=== PATIENT | female | born 1990 | race Two or more races ===

== ENCOUNTER 2020-06-24 22:31 | Emergency (ER) | payer MEDICAID ==
[~2020-06-24] VITALS: Ht 132.1 cm; Wt 63.5 kg
[2020-06-24 23:39] LABS: Eosinophils # (auto) 0.2 10 ^3/uL (0-0.8); Nucleated Red Blood Cells % 0.1 %; Red Blood Cells 4.33 10^6/uL (4.0-5.20)
[2020-06-24 23:41] LABS: Basophils # (auto) 0 10 ^3/uL (0-0.2); Basophils % (auto) 0.5 % (0.0-2.0); Eosinophils % (auto) 2.5 % (0.0-7.0); Hematocrit 34.3 % (36.0-46.0); Hemoglobin 11.4 g/dL (12.2-16.2); Lymphocytes # (auto) 2.5 10 ^3/uL (0.4-5.4); Lymphocytes % (auto) 30.6 % (10.0-50.0); Mean Corpuscular Hemoglobin 26.3 pg (28.0-32.0); Mean Corpuscular Hgb Conc. 33.3 g/dL (32.0-36.0); Mean Corpuscular Volume 79.1 fL (80.0-100.0); Monocytes # (auto) 0.5 10 ^3/uL (0-1.3); Monocytes % (auto) 6.1 % (0.0-12.0); Neutrophils # (auto) 4.9 10 ^3/uL (1.6-8.6); Neutrophils % (auto) 60.3 % (37.0-80.0); Platelet Count (auto) 288 10^3/uL (140-450); White Blood Cell 8.2 10^3/uL (4.4-10.8)
[2020-06-24 23:50] LABS: Urine Bacteria NONE SEEN /hpf (None Seen); Urine Blood Negative /uL (Negative); Urine Budding Yeast MODERATE /hpf (None Seen); Urine Specific Gravity 1.022 (1.001-1.035); Urine WBC 7 /hpf (0 - 5)
[2020-06-24 23:51] LABS: Amphetamine Screen, Urine NEGATIVE (NEGATIVE); Barbiturate Scree,Urine NEGATIVE (NEGATIVE); Benzodiazephine Screen, Urine NEGATIVE (NEGATIVE); Cannabinoid Screen, Urine NEGATIVE (NEGATIVE); Cocaine Screen, Urine NEGATIVE (NEGATIVE); Opiate Scree,Urine NEGATIVE (NEGATIVE); Phencyclidine Screen, Urine NEGATIVE (NEGATIVE)
[2020-06-24 23:56] LABS: Potassium 3.7 mmol/L (3.5-5.1)
[2020-06-25 00:03] LABS: Albumin 3.3 g/dL (3.4-5.0); Bilirubin, Total 0.1 mg/dL (0.2-1.0); Calcium 8.3 mg/dL (8.5-10.1); Total Protein 7.3 g/dL (6.4-8.2)
[2020-06-25 02:45] VITALS: BP 132/67
[2020-06-25] MEDS ORDERED: ACETAMINOPHEN 325 MG TAB PO ONE (02:45)
== END 2020-06-25 03:27 | disposition home or self-care (01) ==
LOC: ER 22:31
DX: O99.011 Anemia complicating pregnancy, first trimester (principal); Z3A.01 Less than 8 weeks gestation of pregnancy
CPT/HCPCS: 36415; 76801; 76817; 80053; 80307; 81001; 84702; 85025

== ENCOUNTER 2020-09-09 15:12 | Emergency (ER) | payer MEDICAID ==
[~2020-09-09] VITALS: Ht 132.1 cm; Wt 73.0 kg
[2020-09-09 15:18] VITALS: BP 138/75
[2020-09-09 16:29] LABS: Urine Bacteria FEW /hpf (None Seen); Urine Blood Negative /uL (Negative); Urine Specific Gravity 1.006 (1.001-1.035); Urine WBC 5 /hpf (0 - 5)
== END 2020-09-09 20:23 | disposition home or self-care (01) ==
LOC: ER 15:12
DX: O23.42 Unspecified infection of urinary tract in pregnancy, second trimester (principal); O43.212 Placenta accreta, second trimester; Z3A.16 16 weeks gestation of pregnancy
CPT/HCPCS: 36415; 76805; 81001; 84702

== ENCOUNTER 2020-09-25 18:04 | Emergency (ER) | payer SELFPAY ==
[~2020-09-25] VITALS: Ht 132.1 cm; Wt 75.7 kg
[2020-09-25] MEDS ORDERED: SODIUM CHLORIDE 0.9% 1,000 ML IV ONE (18:45)
[2020-09-25 19:25] LABS: Hemoglobin 10.6 g/dL (12.2-16.2); Monocytes # (auto) 0.7 10 ^3/uL (0-1.3); Monocytes % (auto) 5.8 % (0.0-12.0); White Blood Cell 11.6 10^3/uL (4.4-10.8)
[2020-09-25 19:27] LABS: Basophils # (auto) 0.1 10 ^3/uL (0-0.2); Basophils % (auto) 0.5 % (0.0-2.0); Eosinophils # (auto) 0.1 10 ^3/uL (0-0.8); Eosinophils % (auto) 1.2 % (0.0-7.0); Hematocrit 32.3 % (36.0-46.0); Lymphocytes # (auto) 2.3 10 ^3/uL (0.4-5.4); Lymphocytes % (auto) 19.7 % (10.0-50.0); Mean Corpuscular Hemoglobin 26.7 pg (28.0-32.0); Mean Corpuscular Hgb Conc. 32.7 g/dL (32.0-36.0); Mean Corpuscular Volume 81.5 fL (80.0-100.0); Neutrophils # (auto) 8.4 10 ^3/uL (1.6-8.6); Neutrophils % (auto) 72.8 % (37.0-80.0); Nucleated Red Blood Cells % 0.2 %; Platelet Count (auto) 336 10^3/uL (140-450); Red Blood Cells 3.96 10^6/uL (4.0-5.20); Red Cell Distribution Width 13.4 % (11.8-14.3)
[2020-09-25 19:39] LABS: Potassium 3.6 mmol/L (3.5-5.1)
[2020-09-25 19:45] LABS: Urine Bacteria FEW /hpf (None Seen); Urine Blood 3+ /uL (Negative); Urine Mucus FEW (None Seen); Urine Specific Gravity 1.022 (1.001-1.035); Urine WBC 2 /hpf (0 - 5)
[2020-09-25 19:57] LABS: Albumin 2.9 g/dL (3.4-5.0); BUN/Creatinine Ratio 26.5; Bilirubin, Total 0.2 mg/dL (0.2-1.0); Calcium 8.9 mg/dL (8.5-10.1); Total Protein 7.5 g/dL (6.4-8.2)
[2020-09-25 21:00] VITALS: BP 128/64
== END 2020-09-25 21:19 | disposition home or self-care (01) ==
LOC: ER 18:04
DX: O20.0 Threatened abortion (principal); O44.02 Complete placenta previa NOS or without hemorrhage, second trimester; Z3A.18 18 weeks gestation of pregnancy
CPT/HCPCS: 36415; 76815; 80053; 81001; 84702; 85025; 96360; 99284; J7030

== ENCOUNTER 2020-10-04 18:34 | Observation (INO) | payer SELFPAY ==
[~2020-10-04] VITALS: Ht 132.1 cm; Wt 75.7 kg
[2020-10-04 18:43] VITALS: BP 122/74
[2020-10-04] MEDS ORDERED: SODIUM CHLORIDE 0.9% 1,000 ML IVB ONE (19:00)
[2020-10-04 19:59] LABS: Basophils # (auto) 0 10 ^3/uL (0-0.2); Basophils % (auto) 0.4 % (0.0-2.0); Eosinophils # (auto) 0.2 10 ^3/uL (0-0.8); Eosinophils % (auto) 1.8 % (0.0-7.0); Neutrophils # (auto) 6.1 10 ^3/uL (1.6-8.6); Nucleated Red Blood Cells % 0.1 %
[2020-10-04 20:11] LABS: Hematocrit 30.2 % (36.0-46.0); Hemoglobin 10.3 g/dL (12.2-16.2); Lymphocytes # (auto) 2.6 10 ^3/uL (0.4-5.4); Lymphocytes % (auto) 27.1 % (10.0-50.0); Mean Corpuscular Hemoglobin 27.1 pg (28.0-32.0); Mean Corpuscular Volume 79.7 fL (80.0-100.0); Monocytes # (auto) 0.6 10 ^3/uL (0-1.3); Neutrophils % (auto) 64.7 % (37.0-80.0); Platelet Count (auto) 333 10^3/uL (140-450); Red Blood Cells 3.79 10^6/uL (4.0-5.20); Red Cell Distribution Width 13.9 % (11.8-14.3); White Blood Cell 9.5 10^3/uL (4.4-10.8)
[2020-10-04 20:16] LABS: Albumin 2.8 g/dL (3.4-5.0); Calcium 8.2 mg/dL (8.5-10.1); Potassium 3.2 mmol/L (3.5-5.1)
[2020-10-04 20:20] LABS: BUN/Creatinine Ratio 11.1; Bilirubin, Total 0.1 mg/dL (0.2-1.0); Total Protein 7.1 g/dL (6.4-8.2)
[2020-10-04] MEDS ORDERED: PREN-125 OR (21:40)
== END 2020-10-04 21:52 | disposition home or self-care (01) ==
LOC: ER 18:35 → LDRP 19:14
PROVIDERS: ADMIT Specialist; ATTEND Specialist
DX: O44.02 Complete placenta previa NOS or without hemorrhage, second trimester (principal); Z3A.19 19 weeks gestation of pregnancy
CPT/HCPCS: 36415; 59025; 76817; 80053; 81002; 84702; 85025; 99284; G0378

== ENCOUNTER 2021-07-17 23:32 | Emergency (ER) | payer MEDICAID ==
[~2021-07-17] VITALS: Ht 134.6 cm; Wt 67.6 kg
[~2021-07-17 23:32] MED LIST: PREN-125 OR
[2021-07-17 23:33] VITALS: BP 162/64
[2021-07-17] MEDS ORDERED: SODIUM CHLORIDE 0.9% 1,000 ML IV ONE (23:45)
[2021-07-17] MEDS ORDERED: diphenhdrAMINE HCL 50 MG/1 ML VL IV ONE (23:45)
[2021-07-17] MEDS ORDERED: KETOROLAC TROMETH 30 MG/ML 1ML VIAL IV ONE (23:45)
[2021-07-17] MEDS ORDERED: METOCLOPRAMIDE HCL 5MG/ml INJ 2ml VIAL IV ONE (23:45)
[2021-07-18] MEDS ORDERED: MAGNESIUM SULFATE 1GM/100ML 100 ML IV ONE
[2021-07-18 01:24] LABS: Urine Bacteria FEW /hpf (None Seen); Urine Blood 3+ /uL (Negative); Urine Mucus FEW (None Seen); Urine Specific Gravity 1.008 (1.001-1.035); Urine WBC 6 /hpf (0 - 5)
== END 2021-07-18 00:41 | disposition left against medical advice (07) ==
LOC: ER 23:35
DX: G43.909 Migraine, unspecified, not intractable, without status migrainosus (principal)
CPT/HCPCS: 81001; 81025; 96361; 96365; 96375; 99284; J1200; J1885; J2765; J3475; J7030